=== PATIENT | female | born 1990 | race Hispanic/Latino ===

== ENCOUNTER → 2024-02-10 | Outpatient (REF) | payer OTHER | LOC: CT 15:49 | PROVIDERS: ATTEND Internal Medicine Endocrinology, Diabetes & Metabolism | DX: K76.9 Liver disease, unspecified (principal); D75.838 Other thrombocytosis; D64.9 Anemia, unspecified | CPT/HCPCS: 74177 ==

== ENCOUNTER → 2024-08-19 | Outpatient (REF) | payer OTHER | LOC: MRI 09:55 | PROVIDERS: ATTEND Internal Medicine Endocrinology, Diabetes & Metabolism | DX: R42 Dizziness and giddiness (principal) | CPT/HCPCS: 70551 ==

== ENCOUNTER → 2024-12-29 | Outpatient (REF) | payer OTHER | LOC: RAD 14:07 | PROVIDERS: ATTEND Internal Medicine Endocrinology, Diabetes & Metabolism | DX: M72.2 Plantar fascial fibromatosis (principal); M77.32 Calcaneal spur, left foot ==